=== PATIENT | female | born 1985 | race Caucasian/White ===

== ENCOUNTER 2017-02-07 22:20 | Emergency (ER) | payer OTHER ==
[2017-02-07 23:36] LABS: PLATELET COUNT 212 x10^3mcL (130-400)
[2017-02-07 23:37] LABS: BASOPHIL % 0 % (0-2)
[2017-02-08 00:12] LABS: CALCIUM 8.3 mg/dL (8.5-10.1); CARBON DIOXIDE 23.1 mmol/L (21-32); CHLORIDE SERUM 106 mmol/L (98-107); CREATININE SERUM 0.6 mg/dL (0.6-1.0); GFR1 > 60 mL/min; GLUCOSE SERUM 98 mg/dL (74-106); POTASSIUM SERUM 4.1 mmol/L (3.5-5.1); SODIUM SERUM 139 mmol/L (136-145)
[2017-02-08 00:16] LABS: ALKALINE PHOSPHATASE 102 U/L (46-116); ALT/SGPT 43 U/L (14-59); AMYLASE 72 U/L (25-115); AST/SGOT 26 U/L (15-37); BILIRUBIN TOTAL 0.6 mg/dL (0.20-1.00); LIPASE 88 IU/L (73-393)
[2017-02-08 00:18] LABS: ALBUMIN 2.6 g/dL (3.4-5.0)
[2017-02-08 01:43] VITALS: BP 127/91
== END 2017-02-08 01:44 | disposition short-term general hospital (02) ==
LOC: ED 22:20
PROVIDERS: Emergency Medicine
DX: O26.893 Other specified pregnancy related conditions, third trimester (principal); R10.9 Unspecified abdominal pain; R19.7 Diarrhea, unspecified; R11.10 Vomiting, unspecified; Z3A.00 Weeks of gestation of pregnancy not specified
CPT/HCPCS: J2765; J7030